=== PATIENT | male | born 1985 | race Caucasian/White ===

== ENCOUNTER 2022-01-24 18:28 | Emergency (ER) | payer MEDICARE ==
[2022-01-24] MEDS ORDERED: Morphine 4 MG/ML VIAL ONE (21:59)
[2022-01-24] MEDS ORDERED: Diazepam 5 MG TAB ONE (21:59)
[2022-01-24] MEDS ORDERED: Dexamethasone 10 MG/ML VIAL ONE (22:00)
== END 2022-01-24 23:41 | disposition home or self-care (01) ==
LOC: CSHERS 18:28
DX: S39.012A Strain of muscle, fascia and tendon of lower back, initial encounter (principal); I10 Essential (primary) hypertension; F17.290 Nicotine dependence, other tobacco product, uncomplicated; X50.0XXA Overexertion from strenuous movement or load, initial encounter
CPT/HCPCS: 72131; 96372; J1100; J2270